=== PATIENT | male | born 1985 | race Caucasian/White ===

== ENCOUNTER 2025-03-19 21:31 | Inpatient (IN) | payer MEDICAID, OTHER ==
[~2025-03-19] VITALS: Ht 170.2 cm; Wt 56.5 kg
[2025-03-19] MEDS: ONDANSETRON HCL 4MG/2ML INJ IV ONE (22:06)
[2025-03-19] MEDS: HYDRALAZINE 20MG/ML VIAL IV ONE (22:06)
[2025-03-19] MEDS: DEXTROSE 50% WATER 50ML SYRINGE IV SCH (22:37)
[2025-03-19] MEDS: LORAZEPAM 2MG/ML UD SYRINGE IV NR (22:56)
[2025-03-19 23:01] LABS: BASOPHILS % 0.8 % (0.0-2.0); EOSINOPHILS % 4.5 % (0.0-5.0); HEMATOCRIT. 41.0 % (42.0-52.0); HEMOGLOBIN. 13.3 g/dL (14.0-18.0); LYMPHOCYTES % 31.3 % (20.0-50.0); MEAN PLATELET VOLUME 7.9 fl (7.4-10.4); MONOCYTES % 4.8 % (2.0-8.0); NEUTROPHILS % 58.6 % (40.0-76.0); PLATELET 302 x1000/uL (130-400); RED BLOOD CELL COUNT 5.05 mill/uL (4.7-6.1); RED CELL DISTRIBUTION WIDTH 13.8 % (11.6-14.6)
[2025-03-19 23:19] LABS: INR 0.9
[2025-03-19] MEDS ORDERED: NICARDIPINE 40MG/200ML PREMIX 200 ML IV PRN (23:30)
[2025-03-19 23:39] LABS: BG BASE EXCESS -5.3 mmol/L (-2.0-3.0); BG CARBOXYHEMOGLOBIN 0.2 % (0.5-1.5); BG DEOXYHEMOGLOBIN 0.8 % (0.0-5.0); BG FLOW(L/min) 15.00 L/min; BG FRACTION INSPIRED OXYGEN 100; BG HCO3 ACT 19.0 mmol/L (21.0-28.0); BG METHEMOGLOBIN 0.2 % (0.5-1.5); BG OXYGEN SATURATION 99.2 % (94.0-98.0); BG OXYHEMOGLOBIN 98.8 % (94.0-98.0); BG PCO2 33.7 mmHg (35.0-48.0); BG PH 7.369 (7.350-7.450); BG PO2 193.8 mmHg (83.0-108.0); BG SAMPLE SITE LEFT RADIAL; BG TOTAL HEMOGLOBIN 14.1 g/dL (13.5-17.5); BG VENT MODE MASK - NRB
[2025-03-20] VITALS (36 sets, daily range): BP systolic 110–183; BP diastolic 70–169; PULSE 81–112; RESP 9–26; TEMP 36.8–37.2; O2SAT 98–100
[2025-03-20 00:10] LABS: CREATININE 1.6 mg/dL (0.6-1.3)
[2025-03-20] MEDS: DEXTROSE 50% WATER 50ML SYRINGE IV SCH (00:10)
[2025-03-20 00:11] LABS: TROPONIN I HIGH SENSITIVITY 31 ng/L (3.0-53); UREA NITROGEN BLOOD 15 mg/dL (9-23)
[2025-03-20 00:12] LABS: ASPARTATE AMINOTRANSFERASE 19 IU/L (<34)
[2025-03-20 00:13] LABS: BILIRUBIN DIRECT < 0.1 mg/dL (<=3.0); BILIRUBIN TOTAL 0.2 mg/dL (0.1-1.0); PROTEIN TOTAL 6.0 g/dL (6.0-8.3)
[2025-03-20] MEDS ORDERED: DEXTROSE 50% WATER 50ML SYRINGE IV PRN ×2 (00:15→08:45)
[2025-03-20] MEDS ORDERED: IPRATROPIUM/ALBUTEROL 0.5-3(2.5)MG/3ML NEB HHN PRN (00:15)
[2025-03-20] MEDS ORDERED: LORAZEPAM 2MG/ML UD SYRINGE IV PRN ×2 (00:15→02:30)
[2025-03-20] MEDS ORDERED: ACETAMINOPHEN 325MG TABLET PO PRN ×2 (00:15)
[2025-03-20] MEDS ORDERED: ONDANSETRON HCL 4MG/2ML INJ IV PRN (00:15)
[2025-03-20] MEDS: DEXT 5%/0.9% NACL 1,000 ML IV SCH (01:03)
[2025-03-20] MEDS: LOSARTAN 50 MG TABLET PO NR (01:08)
[2025-03-20] MEDS: AMLODIPINE 10MG TABLET PO NR (01:08)
[2025-03-20] MEDS: BLOOD SUGAR DIAGNOSTIC STRIP TEST SCH ×2 (02:14→09:00)
[2025-03-20] MEDS ORDERED: LEVETIRACETAM 1,000MG in NACL 100ML PREMIX IV SCH (02:30)
[2025-03-20] MEDS: LEVETIRACETAM 1000MG PREMIX 100 ML IV NR (02:31)
[2025-03-20] MEDS: DEXT 5%/0.45% NACL 1000ML 1,000 ML IV SCH (02:32)
[2025-03-20] MEDS: HYDRALAZINE 20MG/ML VIAL IV PRN (02:49)
[2025-03-20 06:10] LABS: CREATININE 1.8 mg/dL (0.6-1.3); UREA NITROGEN BLOOD 19.0 mg/dL (9-23)
[2025-03-20] MEDS ORDERED: BLOOD SUGAR DIAGNOSTIC STRIP TEST SCH (06:30)
[2025-03-20 06:45] LABS: FOLIC ACID (FOLATE) SERUM 14.51 ng/mL (>5.38)
[2025-03-20 06:51] LABS: VITAMIN B12 SERUM > 2000 pg/mL (211-911)
[2025-03-20] MEDS ORDERED: LEVETIRACETAM 1000MG PREMIX 100 ML IV SCH (09:00)
[2025-03-20] MEDS: ENOXAPARIN 40MG/0.4ML SYR SUBCUT SCH (09:51)
[2025-03-20] MEDS: PANTOPRAZOLE SODIUM 40 MG/VIAL IV SCH (09:52)
[2025-03-20] MEDS: THIAMINE HCL 100 MG/1 ML 2ML VIAL IM SCH (09:53)
[2025-03-20] MEDS: INSULIN LISPRO 100 UNITS/ML SUBCUT SCH (11:46)
[2025-03-20] MEDS: AMLODIPINE 10MG TABLET PO SCH (11:47)
[2025-03-20] MEDS: LOSARTAN 50 MG TABLET PO SCH (11:47)
[2025-03-20 16:04] LABS: CREATINE KINASE MB FRACTION 11.9 ng/mL (0.5-3.6)
[2025-03-20 16:11] LABS: TROPONIN I HIGH SENSITIVITY 183.0 ng/L (3.0-53)
[2025-03-20 17:24] LABS: CLARITY URINE CLEAR (CLEAR); COLOR URINE YELLOW (YELLOW); GLUCOSE URINE 1+ (NEGATIVE); KETONES URINE NEGATIVE (NEGATIVE); LEUKOCYTE ESTERASE URINE NEGATIVE (NEGATIVE); NITRITE URINE NEGATIVE (NEGATIVE); OCCULT BLOOD URINE TRACE (NEGATIVE); PH URINE 5.5 (4.5-8.0); PROTEIN URINE 3+ (NEGATIVE); SPECIFIC GRAVITY URINE 1.013 (1.005-1.030); UROBILINOGEN URINE 0.2 E.U./dL (0.2-1.0)
[2025-03-20 17:25] LABS: SODIUM URINE RANDOM 85.0 mEq/L
[2025-03-20 17:32] LABS: *AMPHETAMINES SCREEN URINE NEGATIVE (NEGATIVE); *BARBITURATES SCREEN URINE NEGATIVE (NEGATIVE); *BENZODIAZEPINES SCREEN URINE PRESUMPTIVE POSITIVE (NEGATIVE); *COCAINE SCREEN URINE PRESUMPTIVE POSITIVE (NEGATIVE)
[2025-03-20 17:33] LABS: CANNABINOID URINE SCREEN NEGATIVE (NEGATIVE); CREATININE URINE RANDOM 52.9 mg/dL; ECSTASY MDMA SCREEN URINE NEGATIVE (NEGATIVE); METHADONE URINE SCREEN NEGATIVE (NEGATIVE); OPIATES URINE SCREEN NEGATIVE (NEGATIVE); PHENCYCLIDINE URINE SCREEN NEGATIVE (NEGATIVE)
[2025-03-20 17:46] LABS: BACTERIA URINE 1+; SQUAMOUS EPITHELIAL CELL URINE FEW /lpf (RARE/1+); WBC URINE 0-2 /hpf (0-2)
[2025-03-20] MEDS: FOLIC ACID 1MG TABLET PO SCH (18:45)
[2025-03-20] MEDS: CHLORDIAZEPOXIDE 25MG CAPSULE PO SCH (22:00)
[2025-03-20 22:19] LABS: CREATINE KINASE MB FRACTION 11.1 ng/mL (0.5-3.6)
[2025-03-20 22:21] LABS: TROPONIN I HIGH SENSITIVITY 161.0 ng/L (3.0-53)
[2025-03-21] VITALS (12 sets, daily range): BP systolic 104–170; BP diastolic 71–109; PULSE 75–99; RESP 10–24; TEMP 36.3–37; O2SAT 97–100
[2025-03-21 11:26] LABS: BASOPHILS % 0.9 % (0.0-2.0); EOSINOPHILS % 5.3 % (0.0-5.0); HEMATOCRIT. 34.1 % (42.0-52.0); HEMOGLOBIN. 10.9 g/dL (14.0-18.0); LYMPHOCYTES % 29.0 % (20.0-50.0); MEAN PLATELET VOLUME 7.3 fl (7.4-10.4); MONOCYTES % 5.1 % (2.0-8.0); NEUTROPHILS % 59.7 % (40.0-76.0); PLATELET 266 x1000/uL (130-400); RED BLOOD CELL COUNT 4.21 mill/uL (4.7-6.1); RED CELL DISTRIBUTION WIDTH 14.2 % (11.6-14.6)
[2025-03-21 11:43] LABS: CREATINE KINASE MB FRACTION 6.7 ng/mL (0.5-3.6)
[2025-03-21 11:44] LABS: CREATININE 1.6 mg/dL (0.6-1.3); TRIGLYCERIDE 70 mg/dL (0-150)
[2025-03-21 11:45] LABS: LDL CHOLESTEROL 58 mg/dL (5-100); UREA NITROGEN BLOOD 16 mg/dL (9-23)
[2025-03-21 11:46] LABS: ASPARTATE AMINOTRANSFERASE 18 IU/L (<34); BILIRUBIN DIRECT < 0.1 mg/dL (<=3.0)
[2025-03-21 11:47] LABS: BILIRUBIN TOTAL 0.2 mg/dL (0.1-1.0); PROTEIN TOTAL 4.6 g/dL (6.0-8.3); T4 FREE 1.05 ng/dL (0.89-1.76)
[2025-03-21 12:23] LABS: TROPONIN I HIGH SENSITIVITY 101 ng/L (3.0-53)
[2025-03-22] VITALS (12 sets, daily range): BP systolic 91–154; BP diastolic 61–116; PULSE 75–94; RESP 12–19; TEMP 36.1–37.1; O2SAT 97–100
[2025-03-22 06:29] LABS: UREA NITROGEN BLOOD 20.0 mg/dL (9-23)
[2025-03-22 06:32] LABS: PLATELET 261 x1000/uL (130-400); RED BLOOD CELL COUNT 4.10 mill/uL (4.7-6.1); RED CELL DISTRIBUTION WIDTH 14.4 % (11.6-14.6)
[2025-03-22 07:04] LABS: CREATININE 2.1 mg/dL (0.6-1.3)
[2025-03-22] MEDS: INSULIN LISPRO 100 UNITS/ML SUBCUT SCH ×3 (09:12→13:00)
[2025-03-22] MEDS: INSULIN GLARGINE 100 UNITS/ML SUBCUT SCH (09:14)
[2025-03-22 13:08] LABS: *CREATININE RANDOM URINE 55.2 mg/dL (Not Estab.); MICROALBUMIN RANDOM URINE 1934.3 ug/mL (Not Estab.); MICROALBUMIN/CREATININE RATIO 3504.0 mg/g creat (0-29)
[2025-03-23] VITALS (13 sets, daily range): BP systolic 107–161; BP diastolic 73–125; PULSE 78–99; RESP 14–25; TEMP 36.3–37.1; O2SAT 95–100
[2025-03-23] MEDS: ASPIRIN 81MG EC TABLET PO SCH (09:02)
[2025-03-23] MEDS: CLOPIDOGREL 75MG TABLET PO SCH (09:02)
[2025-03-23] MEDS: ATORVASTATIN CALCIUM 40MG TABLET PO SCH (21:29)
[2025-03-24] VITALS (11 sets, daily range): BP systolic 109–154; BP diastolic 69–102; PULSE 79–91; RESP 13–25; TEMP 36.6–37.1; O2SAT 96–100
[2025-03-24 04:07] LABS: MICROALBUMIN 24 HR URINE 1941.0 mg/day (0-29); MICROALBUMIN URINE 1764.9 ug/mL (Not Estab.)
[2025-03-24] MEDS: SODIUM CHLORIDE 0.45% 1,000 ML IV SCH (12:00)
[2025-03-24] MEDS: DEXTROSE 50% WATER 50ML SYRINGE IV PRN (20:45)
[2025-03-25] VITALS (20 sets, daily range): BP systolic 99–148; BP diastolic 60–96; PULSE 77–94; RESP 13–32; TEMP 36.3–36.8; O2SAT 78–100
[2025-03-25] MEDS ORDERED: AMLO5TAB88 MT (07:26)
[2025-03-25] MEDS ORDERED: INSU100I28 SQ (07:26)
[2025-03-25] MEDS ORDERED: FLAS1EAC2 TP (07:26)
[2025-03-25] MEDS ORDERED: LOSA50TA41 MT (07:26)
[2025-03-25] MEDS ORDERED: ATOR40TA70 MT (07:26)
[2025-03-25] MEDS ORDERED: ASPI-1497 MT (07:26)
[2025-03-25] MEDS: ENOXAPARIN 30MG/0.3ML SYR SUBCUT SCH (10:05)
[2025-03-25 13:55] LABS: CREATININE 2.3 mg/dL (0.6-1.3); UREA NITROGEN BLOOD 29.0 mg/dL (9-23)
[2025-03-25] MEDS: CALCIUM ACETATE 667MG CAPSULE PO NR (16:29)
[2025-03-25] MEDS: SODIUM ZIRCONIUM CYCLOSILICATE 10GM/PACKET PO SCH (16:33)
[2025-03-26] VITALS (19 sets, daily range): BP systolic 126–152; BP diastolic 79–136; PULSE 81–111; RESP 12–27; TEMP 35.9–36.8; O2SAT 95–99
[2025-03-26] MEDS: DEXTROSE 50% WATER 50ML SYRINGE IV SCH ×2 (00:14→16:24)
[2025-03-26] MEDS: SODIUM BICARBONATE 8.4% 50MEQ/50ML SYR IV SCH ×2 (00:14→11:12)
[2025-03-26] MEDS: CALCIUM CHLORIDE 1GM/10ML SYR IV SCH (00:14)
[2025-03-26] MEDS: INSULIN REGULAR (HUMULIN R) 1000UNITS/10ML VIAL IV SCH ×2 (00:16→16:25)
[2025-03-26] MEDS ORDERED: ALBUTEROL (0.083%) 2.5MG/3ML NEB ONE ×2 (05:39→05:49)
[2025-03-26] MEDS: ALBUTEROL (0.083%) 2.5MG/3ML NEB HHN SCH ×2 (05:51→06:44)
[2025-03-26] MEDS ORDERED: SODIUM POLYSTYRENE SULFONATE 15 G/60 ML BOT PO ONE (10:45)
[2025-03-26] MEDS: SODIUM ZIRCONIUM CYCLOSILICATE 10GM/PACKET PO SCH (11:12)
[2025-03-26] MEDS: CALCIUM GLUCONATE 100MG/ML 10ML VIAL IV SCH (11:38)
[2025-03-26] MEDS: ERGOCALCIFEROL 50000UNITS CAPSULE PO SCH (11:38)
[2025-03-26 12:24] LABS: CREATININE 2.5 mg/dL (0.6-1.3); UREA NITROGEN BLOOD 35.0 mg/dL (9-23)
[2025-03-26] MEDS: SODIUM CHLORIDE 0.45% 1,000 ML IV ONE (16:27)
[2025-03-26 17:14] LABS: GLUCOSE URINE TRACE (NEGATIVE); KETONES URINE NEGATIVE (NEGATIVE); LEUKOCYTE ESTERASE URINE NEGATIVE (NEGATIVE); NITRITE URINE POSITIVE (NEGATIVE); OCCULT BLOOD URINE NEGATIVE (NEGATIVE); PH URINE 5.5 (4.5-8.0); PROTEIN URINE 2+ (NEGATIVE); SPECIFIC GRAVITY URINE 1.012 (1.005-1.030); UROBILINOGEN URINE 0.2 E.U./dL (0.2-1.0)
[2025-03-26 18:28] LABS: COLOR URINE STRAW (YELLOW)
[2025-03-26 18:29] LABS: CLARITY URINE SL HAZY (CLEAR)
[2025-03-26 18:30] LABS: BACTERIA URINE 3+; RBC URINE NONE SEEN /hpf (0-2); SQUAMOUS EPITHELIAL CELL URINE FEW /lpf (RARE/1+); WBC URINE 0-2 /hpf (0-2)
[2025-03-26 18:31] LABS: MUCUS URINE TRACE /lpf (NONE/TRACE)
[2025-03-26 22:20] LABS: CREATININE 2.2 mg/dL (0.6-1.3); UREA NITROGEN BLOOD 30.0 mg/dL (9-23)
[2025-03-27] VITALS (7 sets, daily range): BP systolic 117–138; BP diastolic 70–91; PULSE 86–98; RESP 17–21; TEMP 36.1–36.8; O2SAT 92–99
[2025-03-27] MEDS: BLOOD SUGAR DIAGNOSTIC STRIP TEST SCH
[2025-03-27] MEDS ORDERED: LORAZEPAM 2MG/ML UD SYRINGE IV PRN ×2 (03:45)
[2025-03-27] MEDS ORDERED: IPRATROPIUM/ALBUTEROL 0.5-3(2.5)MG/3ML NEB HHN PRN (03:45)
[2025-03-27] MEDS: INSULIN LISPRO 100 UNITS/ML SUBCUT SCH ×2 (03:45→22:18)
[2025-03-27] MEDS: THIAMINE HCL 100 MG/1 ML 2ML VIAL IM SCH (06:50)
[2025-03-27] MEDS: CHLORDIAZEPOXIDE 25MG CAPSULE PO SCH (06:51)
[2025-03-27] MEDS: DEXT 5%/0.45% NACL 1000ML 1,000 ML IV SCH (06:51)
[2025-03-27] MEDS: LOSARTAN 50 MG TABLET PO SCH (06:51)
[2025-03-27 07:18] LABS: BASOPHILS % 0.5 % (0.0-2.0); EOSINOPHILS % 6.6 % (0.0-5.0); HEMATOCRIT. 31.6 % (42.0-52.0); HEMOGLOBIN. 10.2 g/dL (14.0-18.0); LYMPHOCYTES % 23.9 % (20.0-50.0); MEAN PLATELET VOLUME 7.1 fl (7.4-10.4); MONOCYTES % 9.0 % (2.0-8.0); NEUTROPHILS % 60.0 % (40.0-76.0); PLATELET 306 x1000/uL (130-400); RED BLOOD CELL COUNT 3.81 mill/uL (4.7-6.1); RED CELL DISTRIBUTION WIDTH 14.5 % (11.6-14.6)
[2025-03-27 07:44] LABS: CREATININE 2.0 mg/dL (0.6-1.3)
[2025-03-27 07:45] LABS: UREA NITROGEN BLOOD 31 mg/dL (9-23)
[2025-03-27 07:47] LABS: PHOSPHORUS 4.5 mg/dL (2.5-4.9)
[2025-03-27] MEDS: ENOXAPARIN 40MG/0.4ML SYR SUBCUT SCH (08:55)
[2025-03-27] MEDS: DEXTROSE 50% WATER 50ML SYRINGE IV NR (09:41)
[2025-03-27] MEDS: FUROSEMIDE 20MG/2ML VIAL IV NR (09:43)
[2025-03-27] MEDS: CALCIUM GLUCONATE 100MG/ML 10ML VIAL IV NR (09:43)
[2025-03-27] MEDS: INSULIN REGULAR (HUMULIN R) 1000UNITS/10ML VIAL IV NR (09:59)
[2025-03-27] MEDS: ALBUTEROL (0.5%) 2.5MG/0.5ML NEB HHN NR (10:03)
[2025-03-27] MEDS: SODIUM ZIRCONIUM CYCLOSILICATE 10GM/PACKET PO SCH (13:45)
[2025-03-27] MEDS ORDERED: DEXTROSE 50% WATER 50ML SYRINGE IV PRN (18:15)
[2025-03-27] MEDS ORDERED: BLOOD SUGAR DIAGNOSTIC STRIP TEST SCH (21:00)
[2025-03-27] MEDS: INSULIN GLARGINE 100 UNITS/ML SUBCUT SCH (22:18)
[2025-03-28 00:05] VITALS: BP 120/73; PULSE 82; RESP 12; TEMP 36.1; O2SAT 96
[2025-03-28 04:05] VITALS: BP 115/94; PULSE 89; RESP 12; TEMP 36.2; O2SAT 94
[2025-03-28 08:00] VITALS: BP 165/105; PULSE 96; RESP 17; TEMP 36.4; O2SAT 99
[2025-03-28 08:38] LABS: BASOPHILS % 0.7 % (0.0-2.0); EOSINOPHILS % 7.5 % (0.0-5.0); HEMATOCRIT. 33.0 % (42.0-52.0); HEMOGLOBIN. 10.6 g/dL (14.0-18.0); LYMPHOCYTES % 24.4 % (20.0-50.0); MEAN PLATELET VOLUME 7.4 fl (7.4-10.4); MONOCYTES % 8.8 % (2.0-8.0); NEUTROPHILS % 58.6 % (40.0-76.0); PLATELET 338 x1000/uL (130-400); RED BLOOD CELL COUNT 4.08 mill/uL (4.7-6.1); RED CELL DISTRIBUTION WIDTH 14.2 % (11.6-14.6)
[2025-03-28 08:51] LABS: CREATININE 2.3 mg/dL (0.6-1.3)
[2025-03-28 08:52] LABS: UREA NITROGEN BLOOD 27 mg/dL (9-23)
[2025-03-28 08:54] LABS: PHOSPHORUS 5.5 mg/dL (2.5-4.9)
[2025-03-28] MEDS ORDERED: ALBUTEROL (0.5%) 2.5MG/0.5ML NEB HHN NR (09:45)
[2025-03-28] MEDS: INSULIN REGULAR (HUMULIN R) 1000UNITS/10ML VIAL IV NR (10:12)
[2025-03-28] MEDS: DEXTROSE 50% WATER 50ML SYRINGE IV NR (10:13)
[2025-03-28] MEDS: CALCIUM GLUCONATE 100MG/ML 10ML VIAL IV NR (10:50)
[2025-03-28] MEDS: FUROSEMIDE 40MG/4ML VIAL IV NR (10:50)
[2025-03-28 12:00] VITALS: BP 136/85; PULSE 93; RESP 18; TEMP 36.4; O2SAT 97
[2025-03-28] MEDS: CLONIDINE 0.1MG TABLET PO PRN (15:11)
[2025-03-28 16:00] VITALS: BP 114/81; PULSE 92; RESP 18; TEMP 36.4; O2SAT 98
[2025-03-28 20:00] VITALS: BP 125/86; PULSE 87; RESP 17; TEMP 36.6; O2SAT 98
[2025-03-29] VITALS: BP 104/72; PULSE 85; RESP 16; TEMP 36.7; O2SAT 98
[2025-03-29 04:00] VITALS: BP 112/78; PULSE 87; RESP 15; TEMP 36.8; O2SAT 98
[2025-03-29 06:40] LABS: BASOPHILS % 0.8 % (0.0-2.0); EOSINOPHILS % 9.0 % (0.0-5.0); HEMATOCRIT. 32.3 % (42.0-52.0); HEMOGLOBIN. 10.3 g/dL (14.0-18.0); LYMPHOCYTES % 31.0 % (20.0-50.0); MEAN PLATELET VOLUME 7.2 fl (7.4-10.4); MONOCYTES % 8.7 % (2.0-8.0); NEUTROPHILS % 50.5 % (40.0-76.0); PLATELET 337 x1000/uL (130-400); RED BLOOD CELL COUNT 3.93 mill/uL (4.7-6.1); RED CELL DISTRIBUTION WIDTH 13.8 % (11.6-14.6)
[2025-03-29 06:54] LABS: CREATININE 2.9 mg/dL (0.6-1.3); UREA NITROGEN BLOOD 27.0 mg/dL (9-23)
[2025-03-29 08:00] VITALS: BP 101/61; PULSE 92; RESP 22; TEMP 37; O2SAT 98
[2025-03-29] MEDS: SODIUM CHLORIDE 0.45% 2,000 ML IV NR (10:35)
[2025-03-29 12:00] VITALS: BP 134/86; PULSE 89; RESP 18; TEMP 36.8; O2SAT 95
[2025-03-29] MEDS: DEXTROSE 50% WATER 50ML SYRINGE IV PRN (15:46)
[2025-03-29 16:00] VITALS: BP 154/99; PULSE 102; RESP 15; TEMP 36.8; O2SAT 98
[2025-03-29] MEDS: INSULIN LISPRO 100 UNITS/ML SUBCUT SCH ×2 (16:00→17:20)
[2025-03-29] MEDS ORDERED: INSULIN LISPRO 100 UNITS/ML SUBCUT SCH (17:20)
[2025-03-29 17:32] LABS: CREATININE 2.6 mg/dL (0.6-1.3); UREA NITROGEN BLOOD 23.0 mg/dL (9-23)
[2025-03-29 20:01] VITALS: BP 133/92; PULSE 83; RESP 20; TEMP 35.9; O2SAT 98
[2025-03-29] MEDS: FAMOTIDINE 20MG TABLET PO SCH (21:52)
[2025-03-30 00:01] VITALS: BP 107/73; PULSE 73; RESP 11; TEMP 36.2; O2SAT 93
[2025-03-30 04:01] VITALS: BP 121/81; PULSE 77; RESP 22; TEMP 36.2; O2SAT 98
[2025-03-30 06:27] LABS: BASOPHILS % 0.9 % (0.0-2.0); EOSINOPHILS % 10.2 % (0.0-5.0); HEMATOCRIT. 28.7 % (42.0-52.0); HEMOGLOBIN. 9.2 g/dL (14.0-18.0); LYMPHOCYTES % 29.2 % (20.0-50.0); MEAN PLATELET VOLUME 7.1 fl (7.4-10.4); MONOCYTES % 7.5 % (2.0-8.0); NEUTROPHILS % 52.2 % (40.0-76.0); PLATELET 327 x1000/uL (130-400); RED BLOOD CELL COUNT 3.55 mill/uL (4.7-6.1); RED CELL DISTRIBUTION WIDTH 14.1 % (11.6-14.6)
[2025-03-30 06:46] LABS: CREATININE 2.3 mg/dL (0.6-1.3)
[2025-03-30 06:48] LABS: UREA NITROGEN BLOOD 22.0 mg/dL (9-23)
[2025-03-30] MEDS: INSULIN LISPRO 100 UNITS/ML SUBCUT SCH (06:48)
[2025-03-30 08:00] VITALS: BP 122/84; PULSE 85; RESP 20; TEMP 36.7; O2SAT 99
[2025-03-30] MEDS: ENOXAPARIN 30MG/0.3ML SYR SUBCUT SCH (09:18)
[2025-03-30 12:00] VITALS: BP 123/79; PULSE 87; RESP 17; TEMP 37; O2SAT 97
[2025-03-30] MEDS ORDERED: SODIUM CHLORIDE 0.45% 1,000 ML IV SCH (12:30)
[2025-03-30 16:00] VITALS: BP 136/94; PULSE 81; RESP 19; TEMP 36.4; O2SAT 95
[2025-03-30 20:00] VITALS: BP 146/98; PULSE 90; RESP 20; TEMP 36.8; O2SAT 96
[2025-03-30] MEDS: INSULIN GLARGINE 100 UNITS/ML SUBCUT SCH (21:37)
[2025-03-31] VITALS: BP 130/91; PULSE 88; RESP 23; TEMP 36.7; O2SAT 95
[2025-03-31 04:11] VITALS: BP 131/86; PULSE 93; RESP 17; TEMP 36.6; O2SAT 96
[2025-03-31] MEDS: INSULIN LISPRO 100 UNITS/ML SUBCUT SCH (06:45)
[2025-03-31] MEDS ORDERED: INSULIN LISPRO 100 UNITS/ML SUBCUT SCH (06:50)
[2025-03-31 08:00] VITALS: BP 156/99; PULSE 85; RESP 13; TEMP 36.7; O2SAT 95
[2025-03-31 10:17] LABS: BASOPHILS % 0.6 % (0.0-2.0); EOSINOPHILS % 7.7 % (0.0-5.0); HEMATOCRIT. 33.5 % (42.0-52.0); LYMPHOCYTES % 26.3 % (20.0-50.0); MEAN PLATELET VOLUME 6.9 fl (7.4-10.4); MONOCYTES % 7.2 % (2.0-8.0); NEUTROPHILS % 58.2 % (40.0-76.0); PLATELET 366 x1000/uL (130-400); RED BLOOD CELL COUNT 4.10 mill/uL (4.7-6.1); RED CELL DISTRIBUTION WIDTH 14.1 % (11.6-14.6)
[2025-03-31 10:23] LABS: HEMOGLOBIN. 10.7 g/dL (14.0-18.0)
[2025-03-31 10:39] LABS: CREATININE 2.1 mg/dL (0.6-1.3)
[2025-03-31 10:40] LABS: UREA NITROGEN BLOOD 18.0 mg/dL (9-23)
[2025-03-31 12:00] VITALS: BP 134/74; PULSE 93; RESP 17; TEMP 36.7; O2SAT 95
[2025-03-31 13:08] LABS: C-PEPTIDE 0.6 ng/mL (1.1-4.4); INSULIN 0.9 uIU/mL (2.6-24.9)
[2025-03-31] MEDS ORDERED: AMLO10TA80 PO (14:18)
[2025-03-31] MEDS ORDERED: SODI10PO PO (14:18)
[2025-03-31] MEDS ORDERED: SODI650T MT (14:21)
[2025-03-31] MEDS ORDERED: ERGO1250 PO (14:23)
[2025-03-31 15:05] VITALS: BP_SYST 132; BP_SYST 134; BP_DIAS 74; BP_DIAS 86; PULSE 93; RESP 17; TEMP 98.1
[2025-03-31 16:00] VITALS: BP 132/86; PULSE 89; RESP 20; TEMP 36.9; O2SAT 94; O2SAT 97
[2025-04-03] MEDS ORDERED: INSLIS SUBCUT (04:13)
[2025-04-03] MEDS ORDERED: LANTUSUD SUBCUT (04:13)
[2025-04-04 11:13] LABS: PRO INSULIN 2.1 pmol/L (0.0-10.0)
== END 2025-03-31 17:15 | disposition home or self-care (01) | DRG 812 ==
LOC: ER 21:31 → EDBEDREQSVC 03-20 00:33 → EDBEDREQ 03-20 00:33 → EDBEDREQDT 03-20 00:33 → EDBEDREQTM 03-20 00:33 → ENRESERV 03-20 00:43 → EDBD 03-20 01:41 → MICUSO 03-20 01:41 → 5EST 03-20 21:46 → 3WST 03-26 23:47
PROVIDERS: ADMIT Internal Medicine; ATTEND Internal Medicine
DX: T38.3X1A Poisoning by insulin and oral hypoglycemic [antidiabetic] drugs, accidental (unintentional), initial encounter (principal); N17.0 Acute kidney failure with tubular necrosis; G92.8 Other toxic encephalopathy; E46 Unspecified protein-calorie malnutrition; D72.10 Eosinophilia, unspecified; I16.1 Hypertensive emergency; E87.20 Acidosis, unspecified; D63.8 Anemia in other chronic diseases classified elsewhere; E83.39 Other disorders of phosphorus metabolism; E87.0 Hyperosmolality and hypernatremia; E83.51 Hypocalcemia; G40.909 Epilepsy, unspecified, not intractable, without status epilepticus; N18.4 Chronic kidney disease, stage 4 (severe); E10.649 Type 1 diabetes mellitus with hypoglycemia without coma; E10.22 Type 1 diabetes mellitus with diabetic chronic kidney disease; I13.10 Hypertensive heart and chronic kidney disease without heart failure, with stage 1 through stage 4 chronic kidney disease, or unspecified chronic kidney disease; E83.42 Hypomagnesemia; F10.10 Alcohol abuse, uncomplicated; R65.11 Systemic inflammatory response syndrome (SIRS) of non-infectious origin with acute organ dysfunction; E78.00 Pure hypercholesterolemia, unspecified; E87.5 Hyperkalemia; F14.10 Cocaine abuse, uncomplicated; F17.210 Nicotine dependence, cigarettes, uncomplicated; Y90.0 Blood alcohol level of less than 20 mg/100 ml; Y92.89 Other specified places as the place of occurrence of the external cause; Z79.4 Long term (current) use of insulin; Z83.3 Family history of diabetes mellitus; Z86.73 Personal history of transient ischemic attack (TIA), and cerebral infarction without residual deficits; Z68.1 Body mass index [BMI] 19.9 or less, adult; Z79.899 Other long term (current) drug therapy
CPT/HCPCS: 36415; 36600; 70551; 71045; 76770; 80048; 80061; 80076; 80305; 80320; 81003; 82010; 82024; 82043; 82306; 82330; 82375; 82533; 82550; 82553; 82570; 82607; 82746; 82805; 82947; 82962; 83036; 83519; 83525; 83735; 83880; 84100; 84132; 84206; 84300; 84425; 84439; 84443; 84484; 84681; 85025; 85027; 85379; 86850; 86900; 93005; 93306; 93880; 94070; 94640; 94664; 97116; 97162; 99291; A4606; J0360; J0612; J1650; J1815; J1938; J1953; J2060; J2405; J2470; J3411; J3490; G0480